=== PATIENT | female | born 1940 | race Caucasian/White ===

== ENCOUNTER 2019-02-12 23:03 | Emergency (ER) | payer MEDICARE, OTHER ==
--- NOTE | 2019-02-12 23:04 | EDM.PDOC ---
ED HPI GENERAL MEDICAL PROBLEM - General Chief Complaint: Upper Extremity Injury/Pain Stated Complaint: AMBULANCE Time Seen by Provider: 02/12/19 22:50 Source of Information: Reports: Patient History Limitations: Reports: No Limitations - History of Present Illness INITIAL COMMENTS - FREE TEXT/NARRATIVE: This 78 yo female patient was brought to the ED by [facility] and [facility] due to left arm pain. The patient reports her left arm pain started last night, but went away. Tonight, the patient reports her arm started aching again at about 1800. The patient reports her pain continued to get worse until she called the ambulance. The patient reported she also had some nausea during the episode. The patient reports she had a shingles shot in the left arm last Sunday and has had some discomfort in the left arm since that time. The patient reports her symptoms were resolved prior to her arrival in the ED. EMS did a 12 lead EKG that demonstrated a NSR with no ST changes. Onset Date: 02/11/19 Duration: Intermittent, Resolved Prior to Arrival Location: Reports: Upper Extremity, Left Quality: Reports: Ache, Dull Severity: Moderate Improves with: Reports: None Worsens with: Reports: None Context: Reports: Other Associated Symptoms: Reports: Nausea/Vomiting - Related Data Allergies Allergy/AdvReac Type Severity Reaction Status Date / Time chlorhexidine Allergy Itching Verified 02/12/19 22:52 hydrocodone Allergy Nausea and Verified 02/12/19 22:52 Vomiting metoprolol Allergy Dizziness Verified 02/12/19 22:52 Home Meds: Home Meds Atenolol [Tenormin] 1 tab PO DAILY 09/06/14 [History] Furosemide [Lasix] 1 tab PO DAILY 09/06/14 [History] Omeprazole [Prilosec] 1 tab PO BID 09/06/14 [History] Acetaminophen/Diphenhydramine [Tylenol Pm Ex-Strength Caplet] 2 tab PO BEDTIME 07/29/15 [History] Ferrous Fumarate [Ferrocite] 1 tab PO BID 07/29/15 [History] Levothyroxine 1 tab PO DAILY 07/29/15 [History] Multivitamin with Minerals [Multiple Vitamin] 1 tab PO DAILY 07/29/15 [History] Sennosides/Docusate Sodium [Stool Softener-Laxative] 1 tab PO BEDTIME 07/29/15 [ History] traMADol [Ultram] 1 tab PO .Q6H PRN 07/29/15 [History] atorvaSTATin [Lipitor] 20 mg PO DAILY 02/12/19 [History] Past Medical History Other HEENT History: unilateral vocal cod paralysis; WEARS CORRECTIVE LENSES Other Respiratory History: nodule of L) lung Other Gastrointestinal History: rectal bleed Other Musculoskeletal History: degenerative disc disease - Past Surgical History Other Respiratory Surgeries/Procedures: lobectomy, mediastinoscopy, bronchoscopy , laryngoscopy Social & Family History - Living Situation & Occupation Living situation: Reports: Occupation: Retired Review of Systems - Review of Systems Review Of Systems: ROS reveals no pertinent complaints other than HPI. ED EXAM, GENERAL - Physical Exam Exam: See Below Exam Limited By: No Limitations General Appearance: Alert, WD/WN, Mild Distress Eye Exam: Bilateral Eye: EOMI, Normal Inspection, PERRL Ears: Normal External Exam, Normal Canal, Hearing Grossly Normal, Normal TMs Nose: Normal Inspection, Normal Mucosa, No Blood Throat/Mouth: Normal Inspection, Normal Lips, Normal Teeth, Normal Gums, Normal Oropharynx, Normal Voice, No Airway Compromise Head: Atraumatic, Normocephalic Neck: Normal Inspection, Supple, Non-Tender, Full Range of Motion Respiratory/Chest: No Respiratory Distress, Lungs Clear, Normal Breath Sounds, No Accessory Muscle Use, Chest Non-Tender Cardiovascular: Normal Peripheral Pulses, Regular Rate, Rhythm, No Edema, No Gallop, No JVD, No Murmur, No Rub GI/Abdominal: Normal Bowel Sounds, Soft, Non-Tender, No Organomegaly, No Distention, No Abnormal Bruit, No Mass (Female) Exam: Deferred Rectal (Female) Exam: Deferred Back Exam: Normal Inspection, Full Range of Motion, NT Extremities: Normal Inspection, Normal Range of Motion, Non-Tender, Normal Capillary Refill, No Pedal Edema Neurological: Alert, Oriented, CN II-XII Intact, Normal Cognition, Normal Gait, Normal Reflexes, No Motor/Sensory Deficits Psychiatric: Normal Affect, Normal Mood Skin Exam: Warm, Dry, Intact, Normal Color, No Rash Lymphatic: No Adenopathy Course - Vital Signs Last Recorded V/S: Last Vital Signs Temp 36.4 C 02/12/19 23:08 Pulse 71 02/12/19 23:08 Resp 15 02/12/19 23:08 BP 159/75 H 02/12/19 23:08 Pulse Ox 98 02/12/19 23:08 - Orders/Labs/Meds Orders: Active Orders 24 hr Category Date Time Status EKG Documentation Completion [RC] URGENT Care 02/12/19 22:39 Ordered Chest 1V Frontal [CR] Urgent Exams 02/12/19 22:39 Ordered Labs: Laboratory Tests 02/12/19 02/12/19 Range/Units 22:55 22:55 WBC 4.4 L (5.0-10.0) 10^3/uL RBC 3.66 L (4.2-5.4) 10^6/uL Hgb 12.3 (12.0-16.0) g/dL Hct 37.3 (37.0-47.0) % MCV 101.9 H D (80-100) fL MCH 33.6 (27.0-34.0) pg MCHC 33.0 (33.0-35.0) g/dL Plt Count 259 D (150-450) 10^3/uL Neut % (Auto) 54.9 (42.2-75.2) % Lymph % (Auto) 26.1 (20.5-50.1) % [place] % (Auto) 12.2 H (2-8) % Eos % (Auto) 6.3 H (1.0-3.0) % Baso % (Auto) 0.5 (0.0-1.0) % Sodium 140 (135-145) mmol/L Potassium 3.7 (3.6-5.0) mmol/L Chloride 105 (101-111) mmol/L Carbon Dioxide 25.0 (21.0-31.0) mmol/L Anion Gap 13.7 BUN 17 (7-18) mg/dL Creatinine 0.9 (0.6-1.3) mg/dL Est Cr Clr Drug Dosing 43.05 mL/min Estimated GFR (MDRD) > 60 BUN/Creatinine Ratio 18.88 Glucose 111 H (74-105) mg/dL Calcium 8.8 (8.4-10.2) mg/dl Total Bilirubin 0.4 (0.2-1.0) mg/dL AST 29 (10-42) IU/L ALT 17 (10-60) IU/L Alkaline Phosphatase 98 (42-121) IU/L Troponin I 0.00 (0.00-0.08) ng/mL Total Protein 6.9 (6.7-8.2) g/dl Albumin 3.7 (3.2-5.5) g/dl Globulin 3.2 Albumin/Globulin Ratio 1.16 Departure - Departure Time of Disposition: 23:47 Disposition: Home, Self-Care 01 Condition: Fair Clinical Impression: Left upper arm pain Chronic back pain Qualifiers: Back pain location: thoracic back pain Back pain laterality: left Qualified Code(s): M54.6 - Pain in thoracic spine; G89.29 - Other chronic pain - Discharge Information *PRESCRIPTION DRUG MONITORING PROGRAM REVIEWED*: Not Applicable *COPY OF PRESCRIPTION DRUG MONITORING REPORT IN PATIENT KELSI: Not Applicable Forms: ED Department Discharge Care Plan Goals: The patient and family were advised of the examination, EKG, lab and x-ray results during the visit. The patient was encouraged to continue to monitor her symptoms. If the patient has any additional symptoms or concerns, the patient should either return to the emergency department or her primary care facility. - My Orders Last 24 Hours: My Active Orders 02/12/19 22:39 EKG Documentation Completion [RC] URGENT Chest 1V Frontal [CR] Urgent - Assessment/Plan Last 24 Hours: My Active Orders 02/12/19 22:39 EKG Documentation Completion [RC] URGENT Chest 1V Frontal [CR] Urgent
[2019-02-12 23:09] VITALS: BP 159/75
[2019-02-12 23:23] LABS: ANION GAP 13.7; CHLORIDE,CL 105 mmol/L (101-111); SODIUM,NA 140 mmol/L (135-145)
== END 2019-02-13 00:04 | disposition home or self-care (01) ==
LOC: DL.ED 23:03
DX: M79.602 Pain in left arm (principal); M54.6 Pain in thoracic spine; G89.29 Other chronic pain; Z79.899 Other long term (current) drug therapy; Z88.6 Allergy status to analgesic agent; Z88.8 Allergy status to other drugs, medicaments and biological substances
CPT/HCPCS: 36415; 71045; 80053; 84484; 85025; 93005; 99284-25

== ENCOUNTER 2020-05-24 13:40 | Emergency (ER) | payer MEDICARE, OTHER ==
[2020-05-24 13:52] VITALS: BP 172/74; PULSE 68
[2020-05-24] MEDS ORDERED: Morphine 2 MG/ML SYRINGE IVPUSH ONE (14:05)
[2020-05-24] MEDS ORDERED: Ondansetron 4 MG/2 ML SDV IVPUSH ONE (14:08)
--- NOTE | 2020-05-24 14:15 | EDM.PDOC ---
ED HPI GENERAL MEDICAL PROBLEM - General Chief Complaint: Upper Extremity Injury/Pain Stated Complaint: SHOULDER PAIN Time Seen by Provider: 05/24/20 14:02 Source of Information: Reports: Patient History Limitations: Reports: No Limitations - History of Present Illness INITIAL COMMENTS - FREE TEXT/NARRATIVE: This 79 yo female patient reports to the ED by [facility] due to a ground level fall and pain in her left shoulder. The patient reports she tripped and fell onto her left buttocks then down onto her left shoulder. The patient reports she has had increased pain since the time of the fall. EMS gave the patient IV Fentanyl with no changes in her symptoms. The patient reports no loss of consciousness before, during or after the fall. Onset: Today Duration: Minutes: Location: Reports: Upper Extremity, Left Quality: Reports: Ache, Sharp, Stabbing Improves with: Reports: Rest Worsens with: Reports: Movement Context: Reports: Trauma Associated Symptoms: Reports: No Other Symptoms Left Shoulder Pain Score (Numeric/FACES): 10 - Related Data Allergies Allergy/AdvReac Type Severity Reaction Status Date / Time chlorhexidine Allergy Itching Verified 05/24/20 13:52 hydrocodone Allergy Nausea and Verified 05/24/20 13:52 Vomiting metoprolol Allergy Dizziness Verified 05/24/20 13:52 Home Meds: Home Meds Atenolol [Tenormin] 1 tab PO BID 09/06/14 [History] Furosemide [Lasix] 1 tab PO DAILY 09/06/14 [History] Omeprazole [Prilosec] 1 tab PO DAILY 09/06/14 [History] Acetaminophen/Diphenhydramine [Tylenol Pm Ex-Strength Caplet] 2 tab PO BEDTIME 07/29/15 [History] Levothyroxine 1 tab PO DAILY 07/29/15 [History] Multivitamin with Minerals [Multiple Vitamin] 1 tab PO DAILY 07/29/15 [History] Sennosides/Docusate Sodium [Stool Softener-Laxative] 1 tab PO BEDTIME 07/29/15 [History] traMADol [Ultram] 1 tab PO .Q6H PRN 07/29/15 [History] atorvaSTATin [Lipitor] 20 mg PO DAILY 02/12/19 [History] Past Medical History Other HEENT History: unilateral vocal cod paralysis; WEARS CORRECTIVE LENSES Cardiovascular History: Reports: High Cholesterol, Hypertension Other Respiratory History: nodule of L) lung Other Gastrointestinal History: rectal bleed Genitourinary History: Reports: None [employer] History: Reports: None Other Musculoskeletal History: degenerative disc disease Neurological History: Reports: None Psychiatric History: Reports: None Endocrine/Metabolic History: Reports: None Hematologic History: Reports: None Immunologic History: Reports: None Oncologic (Cancer) History: Reports: Lung Dermatologic History: Reports: None - Infectious Disease History Infectious Disease History: Reports: Chicken Pox, Measles, Mumps - Past Surgical History Head Surgeries/Procedures: Reports: None Other Respiratory Surgeries/Procedures: lobectomy, mediastinoscopy, bronchoscopy, laryngoscopy Social & Family History - Tobacco Use Smoking Status *Q: Never Smoker Second Hand Smoke Exposure: No - Caffeine Use Caffeine Use: Reports: Coffee, Tea - Recreational Drug Use Recreational Drug Use: No - Living Situation & Occupation Living situation: Reports: Occupation: Retired Review of Systems - Review of Systems Review Of Systems: Comprehensive ROS is negative, except as noted in HPI. ED EXAM, GENERAL - Physical Exam Exam: See Below Exam Limited By: No Limitations General Appearance: Alert, WD/WN, Moderate Distress Eye Exam: Bilateral Eye: EOMI, Normal Inspection, PERRL Ears: Normal External Exam, Normal Canal, Hearing Grossly Normal, Normal TMs Nose: Normal Inspection, Normal Mucosa, No Blood Throat/Mouth: Normal Inspection, Normal Lips, Normal Teeth, Normal Gums, Normal Oropharynx, Normal Voice, No Airway Compromise Head: Atraumatic, Normocephalic Neck: Normal Inspection, Supple, Non-Tender, Full Range of Motion Respiratory/Chest: No Respiratory Distress, Lungs Clear, Normal Breath Sounds, No Accessory Muscle Use, Chest Non-Tender Cardiovascular: Normal Peripheral Pulses, Regular Rate, Rhythm, No Edema, No Gallop, No JVD, No Murmur, No Rub GI/Abdominal: Normal Bowel Sounds, Soft, Non-Tender, No Organomegaly, No Distention, No Abnormal Bruit, No Mass (Female) Exam: Deferred Rectal (Female) Exam: Deferred Extremities: Arm Pain (left shoulder pain (pain to palpation of the left anterior shoulder and left scapula)) Neurological: Alert, Oriented, CN II-XII Intact, Normal Cognition Psychiatric: Normal Affect, Normal Mood Skin Exam: Warm, Dry, Intact, Normal Color, No Rash Lymphatic: No Adenopathy Course - Vital Signs Last Recorded V/S: Last Vital Signs Temp 35.8 C L 05/24/20 13:46 Pulse 68 05/24/20 13:46 Resp 18 05/24/20 13:46 BP 172/74 H 05/24/20 13:46 Pulse Ox 100 05/24/20 13:46 - Orders/Labs/Meds Meds: Medications Discontinued Medications Generic Name Dose Route Start Last Admin Trade Name Sheng PRN Reason Stop Dose Admin Morphine Sulfate 2 mg 05/24/20 14:05 05/24/20 14:20 Morphine IVPUSH 05/24/20 14:06 2 mg ONETIME ONE Administration Ondansetron HCl 4 mg 05/24/20 14:08 05/24/20 14:18 Zofran IVPUSH 05/24/20 14:09 4 mg ONETIME ONE Administration Oxycodone/Acetaminophen 1 tab 05/24/20 15:40 Percocet 325-5 Mg PO 05/24/20 15:41 ONETIME ONE - Re-Assessments/Exams Free Text/Narrative Re-Assessment/Exam: 05/24/20 15:04 A consult call was placed to [facility] to review treatment recommendations and follow-up with an Orthopedic Provider. Departure - Departure Time of Disposition: 15:43 Disposition: Home, Self-Care 01 Condition: Fair Clinical Impression: Fracture of humerus Qualifiers: Encounter type: initial encounter Humerus Location: proximal Fracture type: closed Fracture morphology: other fracture Fracture alignment: displaced Laterality: left Qualified Code(s): S42.292A - Other displaced fracture of upper end of left humerus, initial encounter for closed fracture - Discharge Information *PRESCRIPTION DRUG MONITORING PROGRAM REVIEWED*: Not Applicable *COPY OF PRESCRIPTION DRUG MONITORING REPORT IN PATIENT KELSI: Not Applicable Instructions: Humerus Fracture Treated With Immobilization, [id number] Forms: ED Department Discharge Care Plan Goals: The patient was advised of the examination and x-ray results during the visit. While in the ED, a consult call was placed to Dr. Cagle ([facility]). Dr. Cagle would like to see the patient in his clinic on Sunday (05/26/20) at 0900 for a follow-up, further evaluation and treatment. The patient's left arm was placed in a sling to immobilize the shoulder. The patient was discharged with a script for Percocet (5/325) #12 to take 1 by mouth every 6 hours as ne eded for pain. If the patient has any additional symptoms or concerns, the patient should either return to the emergency department or visit her primary care facility. Sepsis Event Note (ED) - Evaluation Sepsis Screening Result: No Definite Risk - Focused Exam Vital Signs: Vital Signs Temp Pulse Resp BP Pulse Ox 05/24/20 13:46 35.8 C L 68 18 172/74 H 100
--- NOTE | 2020-05-24 14:54 | CR ---
EXAMINATION: Shoulder Comp 3 views Lt SEX: Female AGE: 79 years CLINICAL HISTORY: 79-year-old female injured ground level fall. (L shoulder pain) INTERPRETATION: Abnormal. 1. Acute COMMINUTED FRACTURE, proximal left humeral head, with humeral shaft impaction. 2. 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 No AC separation. 3. No sign of other left shoulder fracture or glenohumeral dislocation left shoulder. 4. Underlying ribs upper left hemithorax unremarkable. Left lung apex clear. 5. No foreign bodies.
[2020-05-24] MEDS ORDERED: Acetaminophen/oxyCODONE 325-5 MG Tab PO ONE (15:40)
== END 2020-05-24 16:25 | disposition home or self-care (01) ==
LOC: DL.ED 13:40
DX: S42.292A Other displaced fracture of upper end of left humerus, initial encounter for closed fracture (principal); E78.00 Pure hypercholesterolemia, unspecified; I10 Essential (primary) hypertension; Z91.09 Other allergy status, other than to drugs and biological substances; Z88.5 Allergy status to narcotic agent; Z88.8 Allergy status to other drugs, medicaments and biological substances; Z79.899 Other long term (current) drug therapy; W01.0XXA Fall on same level from slipping, tripping and stumbling without subsequent striking against object, initial encounter
CPT/HCPCS: 73030; 96374; 96375; 99284; A9270; J2270; J2405

== ENCOUNTER 2022-01-05 23:05 | Emergency (ER) | payer MEDICARE, OTHER ==
[2022-01-05] MEDS ORDERED: Ondansetron 4 MG Tab.DIS PO ONE (23:06)
[2022-01-05 23:51] LABS: ANION GAP 16.4 mEq/L (7-13)
[2022-01-06 00:08] LABS: CORONAVIRUS COVID-19 NAA NEGATIVE (NEGATIVE)
[2022-01-06] MEDS ORDERED: Sodium Chloride 0.9% 1,000 ML IV ONE (01:01)
[2022-01-06] MEDS ORDERED: Ondansetron 4 MG/2 ML SDV IVPUSH ONE (01:01)
[2022-01-06] MEDS ORDERED: Ketorolac 30 MG/ML SDV IVPUSH ONE (01:11)
[2022-01-06] MEDS ORDERED: Azithromycin 250 MG Tab PO ONE (02:01)
[2022-01-06] MEDS ORDERED: Ondansetron 4 MG Tab.DIS ONE (02:06)
[2022-01-06 02:15] VITALS: BP 140/99; PULSE 100
== END 2022-01-06 02:28 | disposition home or self-care (01) ==
LOC: DL.ED 23:05
DX: J40 Bronchitis, not specified as acute or chronic (principal); R11.2 Nausea with vomiting, unspecified; R77.8 Other specified abnormalities of plasma proteins; E78.00 Pure hypercholesterolemia, unspecified; I10 Essential (primary) hypertension; Z88.5 Allergy status to narcotic agent; Z88.8 Allergy status to other drugs, medicaments and biological substances; Z79.899 Other long term (current) drug therapy; Z20.822 Contact with and (suspected) exposure to COVID-19
CPT/HCPCS: 0240U; 36415; 71045; 80053; 83605; 84484; 85025; 85379; 85610; 87040; 87045; 87046; 87328; 87329; 87899; 93005; 93010; 96374; 96375; 99285; 99285-25; A9270-GY; J1885; J2405; J7030

== ENCOUNTER 2022-03-20 05:23 | Day surgery (SDC) | payer MEDICARE, OTHER ==
[2022-03-20] MEDS ORDERED: Midazolam 1 MG/ML 2 ML SDV IV ONE (05:24)
[2022-03-20] MEDS ORDERED: fentaNYL 100 MCG/2 ML SDV IV ONE (05:24)
[2022-03-20] MEDS: Dextrose 5%-0.45% NaCl 1,000 ML IV SCH (05:48)
[2022-03-20] MEDS ORDERED: Sodium Chloride 0.9% 10 ML Syringe FLUSH PRN (06:00)
[2022-03-20] MEDS ORDERED: Midazolam 1 MG/ML 2 ML SDV ONE (06:16)
[2022-03-20] MEDS ORDERED: fentaNYL 100 MCG/2 ML SDV ONE (06:17)
[2022-03-20] MEDS: fentaNYL 100 MCG/2 ML SDV IV ONE ×3 (06:59→07:06)
[2022-03-20] MEDS: Midazolam 1 MG/ML 2 ML SDV IV ONE ×5 (07:00→07:12)
[2022-03-20] MEDS ORDERED: Sodium Chloride 0.9% 10 ML Syringe FLUSH SCH (09:00)
[2022-03-20 09:40] VITALS: BP 109/84; PULSE 83
== END 2022-03-20 09:25 | disposition home or self-care (01) ==
LOC: DL.ENDO 05:23
PROVIDERS: ATTEND Internal Medicine Gastroenterology
DX: K64.4 Residual hemorrhoidal skin tags (principal); I10 Essential (primary) hypertension; E78.5 Hyperlipidemia, unspecified; K21.9 Gastro-esophageal reflux disease without esophagitis; E03.9 Hypothyroidism, unspecified; F32.A Depression, unspecified; D50.9 Iron deficiency anemia, unspecified; Z98.890 Other specified postprocedural states; Z90.711 Acquired absence of uterus with remaining cervical stump; Z90.89 Acquired absence of other organs; Z91.048 Other nonmedicinal substance allergy status; Z88.1 Allergy status to other antibiotic agents; Z88.5 Allergy status to narcotic agent
CPT/HCPCS: 45378; J2250; J3010; J7042

== ENCOUNTER 2023-02-21 06:56 | Day surgery (SDC) | payer MEDICARE, OTHER ==
[2023-02-21] MEDS ORDERED: Sodium Chloride 0.9% 10 ML Syringe FLUSH PRN (07:00)
[2023-02-21] MEDS ORDERED: Timolol Maleate 0.5% Ophth Soln 5 ML Bottle EYELF ONE (07:00)
[2023-02-21] MEDS ORDERED: Cataract Ophth Solution EYELF ONE (07:00)
[2023-02-21] MEDS ORDERED: Ondansetron 4 MG/2 ML SDV IVPUSH PRN (07:00)
[2023-02-21] MEDS ORDERED: Acetaminophen 325 MG Tab PO PRN (07:00)
[2023-02-21] MEDS ORDERED: Phenylephrine 10% Ophth Soln 5 ML Bot EYELF PRN (07:00)
[2023-02-21] MEDS ORDERED: Povidone-Iodine 5% Sterile Ophth Soln 30 ML Bottle EYELF ONE ×2 (07:00→08:37)
[2023-02-21] MEDS ORDERED: Proparacaine 0.5% Ophth Soln 15 ML Bottle EYELF ONE ×2 (07:00→08:36)
[2023-02-21] MEDS ORDERED: Moxifloxacin 0.5% Ophth Soln 3 ML Bottle EYELF ONE (07:00)
[2023-02-21] MEDS ORDERED: Tropicamide 1% Ophth Soln 15 ML Bottle EYELF ONE (07:00)
[2023-02-21] MEDS ORDERED: Acetaminophen/Codeine 300-30 MG Tab PO PRN (07:00)
[2023-02-21] MEDS ORDERED: Apraclonidine 0.5% Ophth Soln 5 ML Bot EYELF ONE (08:37)
[2023-02-21] MEDS ORDERED: Diclofenac Sodium 0.1% Ophth Soln 5 ML Bottle EYELF ONE (08:37)
[2023-02-21] MEDS ORDERED: Lidocaine 1% 30 ML SDV ONE (08:38)
[2023-02-21] MEDS ORDERED: Dexamethasone/Neomycin/Polymyxin B Ophth Oint 3.5 GM Tube EYELF ONE (08:38)
[2023-02-21] MEDS ORDERED: Chondroitin Sulfate/Hyaluronate Sodium Ophth Inj 0.75 ML Syringe EYELF ONE (08:39)
[2023-02-21] MEDS ORDERED: Vancomycin 500 MG SDV EYELF ONE (08:39)
[2023-02-21] MEDS ORDERED: Balanced Salt Solution Ophth Irrig 500 ML Bottle IOCULAR ONE (08:39)
[2023-02-21 09:21] VITALS: BP 137/62; PULSE 66
== END 2023-02-21 09:25 | disposition home or self-care (01) ==
LOC: DL.SDS 06:56
PROVIDERS: ATTEND Ophthalmology
DX: H25.812 Combined forms of age-related cataract, left eye (principal); I10 Essential (primary) hypertension; D64.9 Anemia, unspecified; E78.5 Hyperlipidemia, unspecified; K21.9 Gastro-esophageal reflux disease without esophagitis; F32.A Depression, unspecified; E03.9 Hypothyroidism, unspecified; Z88.6 Allergy status to analgesic agent; Z88.1 Allergy status to other antibiotic agents; Z88.8 Allergy status to other drugs, medicaments and biological substances; Z79.899 Other long term (current) drug therapy; Z79.890 Hormone replacement therapy; Z79.891 Long term (current) use of opiate analgesic; Z90.710 Acquired absence of both cervix and uterus; Z90.09 Acquired absence of other part of head and neck
CPT/HCPCS: 66984; A9270; J3370; V2632; J3490

== ENCOUNTER 2023-03-07 07:44 | Day surgery (SDC) | payer MEDICARE, OTHER ==
[~2023-03-07 07:44] MED LIST: Sodium Chloride 0.9% 10 ML Syringe FLUSH PRN
[2023-03-07] MEDS ORDERED: Ondansetron 4 MG/2 ML SDV IVPUSH PRN (08:00)
[2023-03-07] MEDS ORDERED: Acetaminophen/Codeine 300-30 MG Tab PO PRN (08:00)
[2023-03-07] MEDS ORDERED: Cataract Ophth Solution EYERT ONE (08:00)
[2023-03-07] MEDS ORDERED: Proparacaine 0.5% Ophth Soln 15 ML Bottle EYERT ONE ×2 (08:00→09:12)
[2023-03-07] MEDS ORDERED: Moxifloxacin 0.5% Ophth Soln 3 ML Bottle EYERT ONE (08:00)
[2023-03-07] MEDS ORDERED: Phenylephrine 10% Ophth Soln 5 ML Bot EYERT PRN (08:00)
[2023-03-07] MEDS ORDERED: Tropicamide 1% Ophth Soln 15 ML Bottle EYERT ONE (08:00)
[2023-03-07] MEDS ORDERED: Povidone-Iodine 5% Sterile Ophth Soln 30 ML Bottle EYERT ONE ×2 (08:00→09:12)
[2023-03-07] MEDS ORDERED: Timolol Maleate 0.5% Ophth Soln 5 ML Bottle EYERT ONE (08:00)
[2023-03-07] MEDS ORDERED: Acetaminophen 325 MG Tab PO PRN (08:00)
[2023-03-07] MEDS ORDERED: Apraclonidine 0.5% Ophth Soln 5 ML Bot EYERT ONE (09:12)
[2023-03-07] MEDS ORDERED: Diclofenac Sodium 0.1% Ophth Soln 5 ML Bottle EYERT ONE (09:13)
[2023-03-07] MEDS ORDERED: Dexamethasone/Neomycin/Polymyxin B Ophth Oint 3.5 GM Tube EYERT ONE (09:13)
[2023-03-07] MEDS ORDERED: Vancomycin 500 MG SDV EYERT ONE (09:14)
[2023-03-07] MEDS ORDERED: Balanced Salt Solution Ophth Irrig 500 ML Bottle IOCULAR ONE (09:14)
[2023-03-07] MEDS ORDERED: Lidocaine 1% 30 ML SDV ONE (09:14)
[2023-03-07] MEDS ORDERED: Chondroitin Sulfate/Hyaluronate Sodium Ophth Inj 0.75 ML Syringe EYERT ONE (09:15)
[2023-03-07 09:55] VITALS: BP 140/67; PULSE 64
== END 2023-03-07 09:58 | disposition home or self-care (01) ==
LOC: DL.SDS 07:44
PROVIDERS: ATTEND Ophthalmology
DX: H25.811 Combined forms of age-related cataract, right eye (principal); F32.A Depression, unspecified; I10 Essential (primary) hypertension; E03.9 Hypothyroidism, unspecified; D50.9 Iron deficiency anemia, unspecified; R73.03 Prediabetes; K21.9 Gastro-esophageal reflux disease without esophagitis; E78.00 Pure hypercholesterolemia, unspecified; Z98.890 Other specified postprocedural states; Z98.1 Arthrodesis status; Z79.899 Other long term (current) drug therapy; Z79.890 Hormone replacement therapy; Z88.2 Allergy status to sulfonamides; Z88.8 Allergy status to other drugs, medicaments and biological substances; Z88.1 Allergy status to other antibiotic agents; Z88.5 Allergy status to narcotic agent
CPT/HCPCS: 00142; A9270-GY; J3370; J3490; V2632